=== PATIENT | female | born 1945 | race Caucasian/White ===

== ENCOUNTER 2019-03-09 13:42 | Outpatient (CLI) | payer MEDICARE ==
[2019-03-09 14:21] LABS: Anion Gap 12 mmol/L (10-20); BUN (Urea Nitrogen) 16 mg/dL (9.8-20.1); Calc. Creatinine Clearance 0 mL/min (70-130); Calcium 8.3 mg/dL (7.8-10.44); Carbon Dioxide 25 mmol/L (23-31); Chloride 109 mmol/L (98-107); Estimated GFR-MDRD 88; Glucose 104 mg/dL (83-110); Potassium 4.2 mmol/L (3.5-5.1); Sodium 142 mmol/L (136-145)
== END 2019-03-09 13:43 | disposition home or self-care (01) ==
LOC: MADLAB 13:42
PROVIDERS: ATTEND Internal Medicine Cardiovascular Disease
DX: I51.89 Other ill-defined heart diseases (principal)
CPT/HCPCS: 36415; 80048

== ENCOUNTER 2019-10-17 14:07 | Emergency (ER) | payer MEDICARE ==
--- NOTE | 2019-10-17 14:48 | CT ---
CT BRAIN WITHOUT CONTRAST: HISTORY: Injury, headache FINDINGS: No evidence of acute infarct, hemorrhage, midline shift or abnormal extra-axial fluid collections is seen. The ventricular size is appropriate and the basilar cisterns are patent. The bony calvarium is intact. There is mucosal disease in the paranasal sinuses. IMPRESSION: No CT evidence of acute intracranial process.
--- NOTE | 2019-10-17 14:55 | CT ---
CT FACIAL BONES WITH CORONAL AND SAGITTAL REFORMATIONS: 10/17/19 HISTORY: Injury. Facial pain. FINDINGS: There are bilateral nasal bone fractures. The remainder of the facial skeleton appears intact. No TMJ dislocation is seen. There is mucosal disease in the paranasal sinuses. IMPRESSION: Nasal bone fractures. POS: OFF
--- NOTE | 2019-10-17 15:22 | RAD ---
XR Knee Lt 4 View STANDARD HISTORY: Left knee pain FINDINGS: No fracture or dislocation is identified. Postop changes of total knee arthroplasty are seen in good position and alignment. No perihardware lucency is identified to suggest loosening.
== END 2019-10-17 15:46 | disposition home or self-care (01) ==
LOC: MADERS 14:07
DX: S02.2XXA Fracture of nasal bones, initial encounter for closed fracture (principal); S00.33XA Contusion of nose, initial encounter; E78.5 Hyperlipidemia, unspecified; E78.00 Pure hypercholesterolemia, unspecified; Z79.891 Long term (current) use of opiate analgesic; Z79.82 Long term (current) use of aspirin; Z79.899 Other long term (current) drug therapy; W18.30XA Fall on same level, unspecified, initial encounter
CPT/HCPCS: 70450; 70486

== ENCOUNTER 2021-08-25 19:40 | Emergency (ER) | payer MEDICARE ==
[~2021-08-25 19:40] MED LIST: Sodium Chloride 0.9% 1,000 ML BAG ONE; Sodium Chloride 0.9% 100 ML BAG ONE
[2021-08-25 20:19] LABS: #Basophils 0.1 thou/uL (0.0-0.2); #Lymphocytes 0.9 thou/uL (1.20-3.40); #Monocytes 0.8 thou/uL (0.11-0.59); #Neutrophils 12.1 thou/uL (1.40-6.50); %Basophils 0.8 % (0.0-1.0); %Eosinophils 0.2 % (0.0-10.0); %Lymphocytes 6.3 % (21.0-51.0); %Monocytes 5.4 % (0.0-10.0); %Neutrophils 87.4 % (42.0-75.0); Hemoglobin 13.9 g/dL (12.0-16.0); Mean Corpuscular HGB CONC 32.8 g/dL (32.0-36.0); Mean Corpuscular Hemoglobin 27.3 pg (27.0-31.0); Mean Corpuscular Volume 83.4 fL (78.0-98.0); Mean Platelet Volume 7.4 fL (7.4-10.4); Platelet Count 296 thou/uL (130-400); RBC Distribution Width 13.6 % (11.5-14.5); White Blood Cell (WBC) Count 13.9 thou/uL (4.8-10.8)
[2021-08-25 20:39] LABS: ALT (SGPT) 13 U/L (8-55); AST (SGOT) 16 U/L (5-34); Albumin 3.8 g/dL (3.4-4.8); Alkaline Phosphatase 105 U/L (40-110); Anion Gap 15 mmol/L (10-20); BUN (Urea Nitrogen) 13 mg/dL (9.8-20.1); Bilirubin, Total 1.1 mg/dL (0.2-1.2); CK (CPK) 42 U/L (29-168); Calc. Creatinine Clearance 0 mL/min (70-130); Calcium 8.9 mg/dL (7.8-10.44); Carbon Dioxide 23 mmol/L (23-31); Chloride 103 mmol/L (98-107); Estimated GFR 91; Globulin 3.2 g/dL (2.4-3.5); Glucose 118 mg/dL (83-110); Potassium 4.1 mmol/L (3.5-5.1); Sodium 137 mmol/L (136-145)
[2021-08-25 20:40] LABS: Acetaminophen Less than 10.0 mcg/mL (10.0-30.0); Alcohol Less than 10 mg/dL (Less than 10); Salicylate Less than 8.0 mg/dL (15.0-30.0)
[2021-08-25] MEDS ORDERED: Acetaminophen 325 MG TAB ONE (21:06)
[2021-08-25] MEDS ORDERED: Ibuprofen 800 MG TAB ONE (21:06)
[2021-08-25] MEDS ORDERED: Ondansetron PF 4 MG/2 ML Vial ONE (21:06)
[2021-08-25] MEDS ORDERED: Sodium Chloride 0.9% 1,000 ML ONE (21:06)
[2021-08-25] MEDS ORDERED: cefTRIAXone\\ROCEPHIN 2 GM VIAL ONE (21:06)
[2021-08-25 21:10] LABS: SARS-CoV-2 NAA Rapid Test Not Detected (NotDetected)
[2021-08-25 21:13] LABS: Bilirubin Negative (Negative); Blood, Urine Moderate (Negative); Clarity Clear (Clear); Glucose, Urine (Dipstick) Negative (Negative); Ketone, Urine > or equal to 80 mg/dL (Negative); Leukocyte Negative (Negative); Nitrite Negative (Negative); Protein, Urine (Dipstick) Negative (Neg-Trace); Specific Gravity, Urine 1.015 (1.005-1.030)
[2021-08-25 21:18] LABS: Squamous Epithelial 0-3 HPF (0-3); WBC/HPF 0-3 HPF (0-3)
[2021-08-25 21:23] LABS: Amphetamine Not Detected (NotDetected); Barbiturates Screen Not Detected (NotDetected); Benzodiazepine Screen Not Detected (NotDetected); Cocaine Metabolite Screen Not Detected (NotDetected); Medtox Control Line Valid? VALID (VALID); Methadone Not Detected (NotDetected); Methamphetamine Not Detected (NotDetected); Opiate Screen Not Detected (NotDetected); Oxycodone Screen Not Detected (NotDetected); Phencyclidine (PCP) Not Detected (NotDetected); THC/Cannabinoid Screen Not Detected (NotDetected); Tricyclic Screen Not Detected (NotDetected)
== END 2021-08-25 23:46 | disposition short-term general hospital (02) ==
LOC: MADERS 19:40
DX: N12 Tubulo-interstitial nephritis, not specified as acute or chronic (principal); R41.82 Altered mental status, unspecified; I49.1 Atrial premature depolarization; E78.5 Hyperlipidemia, unspecified; E78.00 Pure hypercholesterolemia, unspecified; Z20.822 Contact with and (suspected) exposure to COVID-19; Z79.899 Other long term (current) drug therapy
CPT/HCPCS: 51701; 70450; 71045; 80053; 80306; 80307; 81003; 81015; 82550; 83605; 84484; 85025; 86140; 87040; 87086; 93005; 94760; 96365; 96366; 96368; 96375; J0696; J2405; J3370; J3490; J7050

== ENCOUNTER 2021-09-30 11:26 | Emergency (ER) | payer MEDICARE ==
[2021-09-30] MEDS ORDERED: Boostrix 0.5 ML (Tdap) VIAL ONE (12:54)
== END 2021-09-30 12:59 | disposition home or self-care (01) ==
LOC: MADERS 11:26
DX: S81.811A Laceration without foreign body, right lower leg, initial encounter (principal); E78.00 Pure hypercholesterolemia, unspecified; W26.8XXA Contact with other sharp object(s), not elsewhere classified, initial encounter; Z79.899 Other long term (current) drug therapy; Z23 Encounter for immunization
CPT/HCPCS: 90471; 90715; 99282

== ENCOUNTER 2022-03-13 15:40 | Inpatient (IN) | payer MEDICARE ==
[2022-03-13] MEDS ORDERED: Guaifenesin DM 100-10/5 ML UDCUP PO PRN (17:53)
[2022-03-13] MEDS ORDERED: traMADol HCl 50 MG TAB PO PRN (17:53)
[2022-03-13] MEDS ORDERED: tiZANidine HCl 4 MG TAB PO PRN (19:01)
[2022-03-13] MEDS ORDERED: Torsemide 20 MG TAB PO PRN (19:19)
[2022-03-13] MEDS ORDERED: Acetaminophen 650 MG Suppository PR PRN (19:22)
[2022-03-13] MEDS ORDERED: Mag-Al Plus 1200 MG/1200 MG/120 MG/30 ML UDCUP PO PRN (19:24)
[2022-03-13 19:34] VITALS: BMI 35.0
[2022-03-13] MEDS: Atorvastatin Calcium 10 MG TAB PO SCH (21:31)
[2022-03-13] MEDS: Pramipexole Di-HCl 1 MG TAB PO SCH (21:31)
[2022-03-13] MEDS: Cefdinir 300 MG CAP PO SCH (21:31)
[2022-03-13] MEDS: Pregabalin 50 MG CAP PO SCH (21:31)
[2022-03-14 08:06] LABS: #Lymphocytes 1.4 thou/uL (1.20-3.40); #Monocytes 0.6 thou/uL (0.11-0.59); #Neutrophils 2.9 thou/uL (1.40-6.50); %Basophils 0.5 % (0.0-1.0); %Eosinophils 0.2 % (0.0-10.0); %Monocytes 12.3 % (0.0-10.0); Mean Corpuscular HGB CONC 32.4 g/dL (32.0-36.0); Mean Corpuscular Hemoglobin 27.3 pg (27.0-31.0); Mean Corpuscular Volume 84.2 fl (78.0-98.0); Mean Platelet Volume 8.2 fL (7.4-10.4); Platelet Count 348 10x3/uL (130-400); RBC Distribution Width 13.8 % (11.5-14.5); Red Blood Cell (RBC) Count 4.77 mill/uL (4.20-5.40); White Blood Cell (WBC) Count 4.9 10x3/uL (4.8-10.8)
[2022-03-14 08:10] LABS: ALT (SGPT) 26 U/L (8-55); AST (SGOT) 14 U/L (5-34); Albumin 3.2 g/dL (3.4-4.8); Alkaline Phosphatase 69 U/L (40-110); Anion Gap 10 mmol/L (10-20); BUN (Urea Nitrogen) 19 mg/dL (9.8-20.1); Bilirubin, Total 0.7 mg/dL (0.2-1.2); Calc. Creatinine Clearance 98 mL/min (70-130); Calcium 8.8 mg/dL (7.8-10.44); Carbon Dioxide 25 mmol/L (23-31); Chloride 106 mmol/L (98-107); Estimated GFR 92; Globulin 2.6 g/dL (2.4-3.5); Glucose 80 mg/dL (83-110); Potassium 4.2 mmol/L (3.5-5.1); Protein, Total 5.8 g/dL (5.8-8.1); Sodium 137 mmol/L (136-145)
[2022-03-14] MEDS: Saccharomyces boulardii 250 MG CAP PO SCH (09:07)
[2022-03-14] MEDS: Pramipexole Di-HCl 1 MG TAB PO SCH ×3 (09:07→21:17)
[2022-03-14] MEDS: Cefdinir 300 MG CAP PO SCH ×2 (09:07→21:17)
[2022-03-14] MEDS: Dexamethasone 4 MG TAB PO SCH (09:08)
[2022-03-14] MEDS: Ferrous Sulfate 325 MG TAB PO SCH (09:08)
[2022-03-14] MEDS: DULoxetine 20 MG CAP PO SCH (09:08)
[2022-03-14] MEDS: Pregabalin 50 MG CAP PO SCH ×2 (09:08→21:17)
[2022-03-14] MEDS: Raloxifene 60 MG TAB PO SCH (12:03)
[2022-03-14] MEDS: Atorvastatin Calcium 10 MG TAB PO SCH (21:17)
[2022-03-15] MEDS: Pregabalin 50 MG CAP PO SCH ×2 (08:31→21:24)
[2022-03-15] MEDS: Saccharomyces boulardii 250 MG CAP PO SCH (08:31)
[2022-03-15] MEDS: Pramipexole Di-HCl 1 MG TAB PO SCH ×3 (08:31→21:23)
[2022-03-15] MEDS: Dexamethasone 4 MG TAB PO SCH (08:32)
[2022-03-15] MEDS: Ferrous Sulfate 325 MG TAB PO SCH (08:32)
[2022-03-15] MEDS: DULoxetine 20 MG CAP PO SCH (08:32)
[2022-03-15] MEDS: Cefdinir 300 MG CAP PO SCH ×2 (08:52→21:23)
[2022-03-15] MEDS: Raloxifene 60 MG TAB PO SCH (13:00)
[2022-03-15] MEDS ORDERED: Calcium Carbonate 500 MG ChewTAB PO PRN (14:16)
[2022-03-15] MEDS ORDERED: Torsemide 20 MG TAB PO SCH (16:15)
[2022-03-15] MEDS: Acetaminophen 500 MG TAB PO PRN (21:25)
[2022-03-15] MEDS: Atorvastatin Calcium 10 MG TAB PO SCH (21:25)
[2022-03-16] MEDS: Torsemide 20 MG TAB PO SCH (06:02)
[2022-03-16] MEDS: Cefdinir 300 MG CAP PO SCH (07:53)
[2022-03-16] MEDS: Ferrous Sulfate 325 MG TAB PO SCH (07:53)
[2022-03-16] MEDS: DULoxetine 20 MG CAP PO SCH (07:53)
[2022-03-16] MEDS: Dexamethasone 4 MG TAB PO SCH (07:57)
[2022-03-16] MEDS: Pregabalin 50 MG CAP PO SCH ×2 (07:57→21:00)
[2022-03-16] MEDS: Pramipexole Di-HCl 1 MG TAB PO SCH ×3 (07:57→20:59)
[2022-03-16] MEDS: ESOMEPRAZOLE 20 MG PO SCH (07:57)
[2022-03-16] MEDS: Saccharomyces boulardii 250 MG CAP PO SCH (07:57)
[2022-03-16] MEDS ORDERED: Torsemide 20 MG TAB PO SCH (09:00)
[2022-03-16] MEDS: Raloxifene 60 MG TAB PO SCH (12:41)
[2022-03-16] MEDS ORDERED: Senokot S 8.6-50 MG TAB PO PRN (17:58)
[2022-03-16] MEDS: Atorvastatin Calcium 10 MG TAB PO SCH (20:59)
[2022-03-17] MEDS: Torsemide 20 MG TAB PO SCH (06:29)
[2022-03-17] MEDS: Polyethylene Glycol 3350 17 GM Packet PO SCH (09:22)
[2022-03-17] MEDS: Pregabalin 50 MG CAP PO SCH ×2 (09:23→21:04)
[2022-03-17] MEDS: Dexamethasone 4 MG TAB PO SCH (09:26)
[2022-03-17] MEDS: Pramipexole Di-HCl 1 MG TAB PO SCH ×3 (09:26→21:03)
[2022-03-17] MEDS: Saccharomyces boulardii 250 MG CAP PO SCH (09:26)
[2022-03-17] MEDS: Ferrous Sulfate 325 MG TAB PO SCH (09:26)
[2022-03-17] MEDS: DULoxetine 20 MG CAP PO SCH (09:27)
[2022-03-17] MEDS: ESOMEPRAZOLE 20 MG PO SCH (09:28)
[2022-03-17] MEDS: Raloxifene 60 MG TAB PO SCH (12:34)
[2022-03-17] MEDS: Atorvastatin Calcium 10 MG TAB PO SCH (21:03)
[2022-03-18] MEDS: Torsemide 20 MG TAB PO SCH (06:12)
[2022-03-18] MEDS: Dexamethasone 4 MG TAB PO SCH (08:42)
[2022-03-18] MEDS: Polyethylene Glycol 3350 17 GM Packet PO SCH (08:42)
[2022-03-18] MEDS: DULoxetine 20 MG CAP PO SCH (08:42)
[2022-03-18] MEDS: Pramipexole Di-HCl 1 MG TAB PO SCH ×3 (08:42→21:06)
[2022-03-18] MEDS: Saccharomyces boulardii 250 MG CAP PO SCH (08:42)
[2022-03-18] MEDS: Pregabalin 50 MG CAP PO SCH ×2 (08:42→21:06)
[2022-03-18] MEDS: Ferrous Sulfate 325 MG TAB PO SCH (08:42)
[2022-03-18] MEDS: ESOMEPRAZOLE 20 MG PO SCH (08:44)
[2022-03-18] MEDS: Raloxifene 60 MG TAB PO SCH (12:32)
[2022-03-18] MEDS: Atorvastatin Calcium 10 MG TAB PO SCH (21:06)
[2022-03-19] MEDS: ESOMEPRAZOLE 20 MG PO SCH (05:19)
[2022-03-19] MEDS: Torsemide 20 MG TAB PO SCH (05:20)
[2022-03-19] MEDS: Ferrous Sulfate 325 MG TAB PO SCH (08:33)
[2022-03-19] MEDS: Saccharomyces boulardii 250 MG CAP PO SCH (08:33)
[2022-03-19] MEDS: Pramipexole Di-HCl 1 MG TAB PO SCH ×3 (08:33→21:24)
[2022-03-19] MEDS: DULoxetine 20 MG CAP PO SCH (08:33)
[2022-03-19] MEDS: Dexamethasone 4 MG TAB PO SCH (08:33)
[2022-03-19] MEDS: Pregabalin 50 MG CAP PO SCH ×2 (08:33→21:24)
[2022-03-19] MEDS: Polyethylene Glycol 3350 17 GM Packet PO SCH (08:34)
[2022-03-19] MEDS: Raloxifene 60 MG TAB PO SCH (11:30)
[2022-03-19] MEDS: Atorvastatin Calcium 10 MG TAB PO SCH (21:24)
[2022-03-20] MEDS: Acetaminophen 500 MG TAB PO PRN (01:08)
[2022-03-20] MEDS: ESOMEPRAZOLE 20 MG PO SCH (05:50)
[2022-03-20] MEDS: Torsemide 20 MG TAB PO SCH (05:53)
[2022-03-20] MEDS: Pramipexole Di-HCl 1 MG TAB PO SCH ×3 (08:14→21:11)
[2022-03-20] MEDS: Ferrous Sulfate 325 MG TAB PO SCH (08:14)
[2022-03-20] MEDS: Saccharomyces boulardii 250 MG CAP PO SCH (08:15)
[2022-03-20] MEDS: Polyethylene Glycol 3350 17 GM Packet PO SCH (08:15)
[2022-03-20] MEDS: Pregabalin 50 MG CAP PO SCH ×2 (08:15→21:11)
[2022-03-20] MEDS: DULoxetine 20 MG CAP PO SCH (08:18)
[2022-03-20] MEDS: Raloxifene 60 MG TAB PO SCH (13:48)
[2022-03-20] MEDS: Atorvastatin Calcium 10 MG TAB PO SCH (21:11)
[2022-03-21] MEDS: Torsemide 20 MG TAB PO SCH (05:46)
[2022-03-21] MEDS: ESOMEPRAZOLE 20 MG PO SCH (05:46)
[2022-03-21] MEDS: Pramipexole Di-HCl 1 MG TAB PO SCH ×3 (08:18→20:48)
[2022-03-21] MEDS: Saccharomyces boulardii 250 MG CAP PO SCH (08:18)
[2022-03-21] MEDS: Polyethylene Glycol 3350 17 GM Packet PO SCH (08:18)
[2022-03-21] MEDS: Ferrous Sulfate 325 MG TAB PO SCH (08:18)
[2022-03-21] MEDS: Pregabalin 50 MG CAP PO SCH ×2 (08:18→20:48)
[2022-03-21] MEDS: DULoxetine 20 MG CAP PO SCH (08:18)
[2022-03-21] MEDS: Acetaminophen 500 MG TAB PO PRN (11:41)
[2022-03-21] MEDS: Raloxifene 60 MG TAB PO SCH (11:41)
[2022-03-21] MEDS: Atorvastatin Calcium 10 MG TAB PO SCH (20:48)
[2022-03-22 05:16] LABS: Hemoglobin 13.6 g/dL (12.0-16.0); Platelet Count 294 10x3/uL (130-400)
[2022-03-22] MEDS: Torsemide 20 MG TAB PO SCH (05:35)
[2022-03-22] MEDS: ESOMEPRAZOLE 20 MG PO SCH (05:35)
[2022-03-22] MEDS: Polyethylene Glycol 3350 17 GM Packet PO SCH (09:56)
[2022-03-22] MEDS: Pregabalin 50 MG CAP PO SCH ×2 (09:56→20:45)
[2022-03-22] MEDS: DULoxetine 20 MG CAP PO SCH (09:57)
[2022-03-22] MEDS: Saccharomyces boulardii 250 MG CAP PO SCH (09:57)
[2022-03-22] MEDS: Pramipexole Di-HCl 1 MG TAB PO SCH ×3 (09:57→20:45)
[2022-03-22] MEDS: Ferrous Sulfate 325 MG TAB PO SCH (09:57)
[2022-03-22] MEDS: Raloxifene 60 MG TAB PO SCH (12:31)
[2022-03-22] MEDS: Atorvastatin Calcium 10 MG TAB PO SCH (20:45)
[2022-03-22] MEDS: Acetaminophen 500 MG TAB PO PRN (20:48)
[2022-03-23] MEDS: ESOMEPRAZOLE 20 MG PO SCH (05:19)
[2022-03-23] MEDS: Torsemide 20 MG TAB PO SCH (05:19)
[2022-03-23] MEDS: Ferrous Sulfate 325 MG TAB PO SCH (07:47)
[2022-03-23] MEDS: DULoxetine 20 MG CAP PO SCH (07:47)
[2022-03-23] MEDS: Pregabalin 50 MG CAP PO SCH ×2 (07:48→20:58)
[2022-03-23] MEDS: Pramipexole Di-HCl 1 MG TAB PO SCH ×3 (07:48→20:58)
[2022-03-23] MEDS: Polyethylene Glycol 3350 17 GM Packet PO SCH (07:48)
[2022-03-23] MEDS: Lidocaine 5% Patch TD SCH (07:48)
[2022-03-23] MEDS: Saccharomyces boulardii 250 MG CAP PO SCH (07:49)
[2022-03-23] MEDS: Raloxifene 60 MG TAB PO SCH (14:19)
[2022-03-23] MEDS: Atorvastatin Calcium 10 MG TAB PO SCH (20:59)
[2022-03-23] MEDS ORDERED: Transdermal Patch Removal TOP SCH (21:00)
[2022-03-24] MEDS: ESOMEPRAZOLE 20 MG PO SCH (05:19)
[2022-03-24] MEDS: Torsemide 20 MG TAB PO SCH (05:19)
[2022-03-24] MEDS: Polyethylene Glycol 3350 17 GM Packet PO SCH (08:13)
[2022-03-24] MEDS: Lidocaine 5% Patch TD SCH (08:13)
[2022-03-24] MEDS: Pramipexole Di-HCl 1 MG TAB PO SCH (08:13)
[2022-03-24] MEDS: Pregabalin 50 MG CAP PO SCH (08:14)
[2022-03-24] MEDS: Ferrous Sulfate 325 MG TAB PO SCH (08:14)
[2022-03-24] MEDS: Saccharomyces boulardii 250 MG CAP PO SCH (08:14)
[2022-03-24] MEDS: DULoxetine 20 MG CAP PO SCH (08:14)
[2022-03-24 08:49] VITALS: BP 105/68; TEMP 97.8
[2022-03-24] MEDS: Raloxifene 60 MG TAB PO SCH (13:34)
== END 2022-03-24 15:15 | disposition home health service (06) | DRG 948 ==
LOC: MADMS 18:20
PROVIDERS: ADMIT Family Medicine; ATTEND Family Medicine
DX: R53.1 Weakness (principal); I50.32 Chronic diastolic (congestive) heart failure; J96.11 Chronic respiratory failure with hypoxia; L97.919 Non-pressure chronic ulcer of unspecified part of right lower leg with unspecified severity; R53.81 Other malaise; E66.9 Obesity, unspecified; G89.29 Other chronic pain; K21.9 Gastro-esophageal reflux disease without esophagitis; E78.5 Hyperlipidemia, unspecified; I73.9 Peripheral vascular disease, unspecified; I83.009 Varicose veins of unspecified lower extremity with ulcer of unspecified site; M54.50 Low back pain, unspecified; M16.12 Unilateral primary osteoarthritis, left hip; M19.90 Unspecified osteoarthritis, unspecified site; I87.8 Other specified disorders of veins; G25.81 Restless legs syndrome; Z91.041 Radiographic dye allergy status; Z91.048 Other nonmedicinal substance allergy status; Z79.899 Other long term (current) drug therapy; Z86.16 Personal history of COVID-19; Z87.01 Personal history of pneumonia (recurrent); Z90.49 Acquired absence of other specified parts of digestive tract; Z90.710 Acquired absence of both cervix and uterus; Z99.81 Dependence on supplemental oxygen; Z91.81 History of falling; Z68.35 Body mass index [BMI] 35.0-35.9, adult
CPT/HCPCS: 36415; 71046; 80053; 85014; 85018; 85025; 85049; J1650; J8540

== ENCOUNTER 2022-04-30 14:10 | Emergency (ER) | payer MEDICARE ==
[2022-04-30] MEDS ORDERED: Diphenoxylate HCl/Atropine Tablet ONE (14:53)
[2022-04-30] MEDS ORDERED: Ondansetron PF 4 MG/2 ML Vial ONE (14:53)
[2022-04-30] MEDS ORDERED: Lactated Ringer's 1,000 ML ONE (14:53)
[2022-04-30 15:40] LABS: #Lymphocytes 0.5 thou/uL (1.20-3.40); #Monocytes 0.3 thou/uL (0.11-0.59); #Neutrophils 6.5 thou/uL (1.40-6.50); %Basophils 0.2 % (0.0-1.0); %Eosinophils 0.6 % (0.0-10.0); %Lymphocytes 7.2 % (21.0-51.0); %Monocytes 3.8 % (0.0-10.0); %Neutrophils 88.2 % (42.0-75.0); Hemoglobin 13.1 g/dL (12.0-16.0); Mean Corpuscular Hemoglobin 27.6 pg (27.0-31.0); Mean Corpuscular Volume 83.6 fl (78.0-98.0); Mean Platelet Volume 7.3 fL (7.4-10.4); Platelet Count 256 10x3/uL (130-400); RBC Distribution Width 14.1 % (11.5-14.5); Red Blood Cell (RBC) Count 4.75 mill/uL (4.20-5.40); White Blood Cell (WBC) Count 7.3 10x3/uL (4.8-10.8)
[2022-04-30 15:56] LABS: ALT (SGPT) 15 U/L (8-55); AST (SGOT) 11 U/L (5-34); Albumin 3.3 g/dL (3.4-4.8); Alkaline Phosphatase 66 U/L (40-110); Anion Gap 11 mmol/L (10-20); BUN (Urea Nitrogen) 15 mg/dL (9.8-20.1); CK (CPK) 20 U/L (29-168); Calc. Creatinine Clearance 0 mL/min (70-130); Calcium 8.4 mg/dL (7.8-10.44); Carbon Dioxide 24 mmol/L (23-31); Chloride 110 mmol/L (98-107); Estimated GFR 93; Globulin 2.4 g/dL (2.4-3.5); Glucose 100 mg/dL (83-110); Magnesium 1.8 mg/dL (1.6-2.6); Potassium 3.6 mmol/L (3.5-5.1); Protein, Total 5.7 g/dL (5.8-8.1); Sodium 141 mmol/L (136-145)
[2022-04-30 16:07] LABS: Lipase Less than 4 U/L (8-78)
[2022-04-30] MEDS ORDERED: Acetaminophen 500 MG TAB ONE (16:33)
[2022-04-30 18:21] LABS: Blood, Urine Negative (Negative); Glucose, Urine (Dipstick) 100 mg/dL (Negative); Leukocyte Trace (Negative); Protein, Urine (Dipstick) Negative (Neg-Trace)
[2022-04-30 18:22] LABS: Bilirubin Unable to Interpret (Negative); Clarity Hazy (Clear); Ketone, Urine Unable to Interpret mg/dL (Negative); Nitrite Unable to Interpret (Negative); Urobilinogen UNABLE TO INTERPRET mg/dL (Less than 2)
[2022-04-30 18:24] LABS: Bacteria/HPF 2+ HPF (None Seen); RBC/HPF 0-3 HPF (0-3)
== END 2022-04-30 19:00 | disposition home or self-care (01) ==
LOC: MADERS 14:10
DX: R11.10 Vomiting, unspecified (principal); R19.7 Diarrhea, unspecified; M16.12 Unilateral primary osteoarthritis, left hip; E78.00 Pure hypercholesterolemia, unspecified; Z20.822 Contact with and (suspected) exposure to COVID-19; Z79.899 Other long term (current) drug therapy
CPT/HCPCS: 36415; 80053; 81003; 81015; 82550; 83605; 83690; 83735; 85025; 87086; 87186; 87804; 93005; 94760; 96361; 96374; J2405; J7120; U0003; U0005

== ENCOUNTER 2022-09-24 15:58 | Inpatient (IN) | payer MEDICARE ==
[2022-09-24] MEDS ORDERED: Acetaminophen 325 MG TAB PO PRN (19:34)
[2022-09-24] MEDS: tiZANidine HCl 4 MG TAB PO SCH (20:47)
[2022-09-24] MEDS: Pramipexole Di-HCl 1 MG TAB PO SCH (20:47)
[2022-09-24] MEDS: DULoxetine 20 MG CAP PO SCH (20:49)
[2022-09-24] MEDS: Cephalexin 250 MG CAP PO SCH (20:49)
[2022-09-24] MEDS: Potassium Chloride 10 MEQ TAB PO SCH (20:49)
[2022-09-24] MEDS: Simvastatin 20 MG TAB PO SCH (20:50)
[2022-09-24] MEDS: Gabapentin 300 MG CAP PO SCH (20:50)
[2022-09-24] MEDS: Apixaban 5 MG TAB PO SCH (20:52)
[2022-09-25] MEDS: HYDROcodone/Acetaminophen 10/325 mg Tablet PO PRN ×3 (04:42→20:15)
[2022-09-25] MEDS: Ferrous Sulfate 325 MG TAB PO SCH ×2 (08:30→17:15)
[2022-09-25] MEDS: Pramipexole Di-HCl 1 MG TAB PO SCH ×3 (08:30→20:11)
[2022-09-25 08:31] LABS: Hematocrit 36.5 % (36.0-47.0); Hemoglobin 11.9 g/dL (12.0-16.0); Mean Corpuscular HGB CONC 32.6 g/dL (32.0-36.0); Mean Corpuscular Volume 89.2 fl (78.0-98.0); Mean Platelet Volume 6.5 fL (7.4-10.4); Platelet Count 521 10x3/uL (130-400); RBC Distribution Width 14.4 % (11.5-14.5); Red Blood Cell (RBC) Count 4.09 mill/uL (4.20-5.40)
[2022-09-25] MEDS: Gabapentin 300 MG CAP PO SCH ×2 (08:31→20:11)
[2022-09-25] MEDS: Apixaban 5 MG TAB PO SCH ×2 (08:31→20:12)
[2022-09-25] MEDS: CO Q-10 CAPSULE 100 MG PO SCH (08:31)
[2022-09-25] MEDS: Potassium Chloride 10 MEQ TAB PO SCH ×2 (08:31→20:10)
[2022-09-25] MEDS: DULoxetine 20 MG CAP PO SCH ×2 (08:31→20:12)
[2022-09-25] MEDS: Cephalexin 250 MG CAP PO SCH ×2 (08:31→20:11)
[2022-09-25 08:43] LABS: Anion Gap 15 mmol/L (10-20); BUN (Urea Nitrogen) 15 mg/dL (9.8-20.1); Calc. Creatinine Clearance 84 mL/min (70-130); Calcium 9.6 mg/dL (7.8-10.44); Carbon Dioxide 24 mmol/L (23-31); Chloride 105 mmol/L (98-107); Estimated GFR 91; Glucose 99 mg/dL (83-110); Potassium 4.1 mmol/L (3.5-5.1); Sodium 140 mmol/L (136-145)
[2022-09-25] MEDS ORDERED: Torsemide 20 MG TAB PO SCH (09:00)
[2022-09-25] MEDS ORDERED: CO Q-10 CAPSULE 100 MG PO SCH (09:00)
[2022-09-25] MEDS: Raloxifene 60 MG TAB PO SCH (12:08)
[2022-09-25] MEDS: Simvastatin 20 MG TAB PO SCH (20:11)
[2022-09-25] MEDS: tiZANidine HCl 4 MG TAB PO SCH (20:12)
[2022-09-26] MEDS: HYDROcodone/Acetaminophen 10/325 mg Tablet PO PRN (05:22)
[2022-09-26] MEDS: Cephalexin 250 MG CAP PO SCH ×2 (08:01→20:06)
[2022-09-26] MEDS: Ferrous Sulfate 325 MG TAB PO SCH ×2 (08:01→17:01)
[2022-09-26] MEDS: Apixaban 5 MG TAB PO SCH ×2 (08:01→20:06)
[2022-09-26] MEDS: Potassium Chloride 10 MEQ TAB PO SCH ×2 (08:02→20:06)
[2022-09-26] MEDS: Pramipexole Di-HCl 1 MG TAB PO SCH ×3 (08:02→20:06)
[2022-09-26] MEDS: DULoxetine 20 MG CAP PO SCH ×2 (08:02→20:06)
[2022-09-26] MEDS: CO Q-10 CAPSULE 100 MG PO SCH (08:02)
[2022-09-26] MEDS: Gabapentin 300 MG CAP PO SCH ×2 (08:02→20:06)
[2022-09-26] MEDS: HYDROcodone/Acetaminophen 7.5/325 mg Tablet PO PRN ×2 (09:33→18:21)
[2022-09-26] MEDS: Raloxifene 60 MG TAB PO SCH (11:51)
[2022-09-26] MEDS: Simvastatin 20 MG TAB PO SCH (20:06)
[2022-09-26] MEDS: tiZANidine HCl 4 MG TAB PO SCH (20:07)
[2022-09-27] MEDS: HYDROcodone/Acetaminophen 7.5/325 mg Tablet PO PRN ×2 (05:39→22:27)
[2022-09-27] MEDS: Apixaban 5 MG TAB PO SCH ×2 (08:18→21:14)
[2022-09-27] MEDS: Potassium Chloride 10 MEQ TAB PO SCH ×2 (08:18→21:14)
[2022-09-27] MEDS: Cephalexin 250 MG CAP PO SCH (08:18)
[2022-09-27] MEDS: CO Q-10 CAPSULE 100 MG PO SCH (08:19)
[2022-09-27] MEDS: Ferrous Sulfate 325 MG TAB PO SCH ×2 (08:19→17:00)
[2022-09-27] MEDS: Pramipexole Di-HCl 1 MG TAB PO SCH ×3 (08:19→21:14)
[2022-09-27] MEDS: DULoxetine 20 MG CAP PO SCH ×2 (08:19→21:14)
[2022-09-27] MEDS: Gabapentin 300 MG CAP PO SCH ×2 (08:19→21:15)
[2022-09-27 08:43] LABS: Anion Gap 13 mmol/L (10-20); BUN (Urea Nitrogen) 10 mg/dL (9.8-20.1); Calc. Creatinine Clearance 91 mL/min (70-130); Calcium 9.6 mg/dL (7.8-10.44); Carbon Dioxide 22 mmol/L (23-31); Chloride 108 mmol/L (98-107); Estimated GFR 93; Glucose 92 mg/dL (83-110); Potassium 4.2 mmol/L (3.5-5.1); Sodium 139 mmol/L (136-145)
[2022-09-27] MEDS ORDERED: Meropenem 1 GM in Sodium Chloride 0.9% 100 ML IVPB SCH ×3 (10:00→22:00)
[2022-09-27] MEDS: Raloxifene 60 MG TAB PO SCH (13:13)
[2022-09-27] MEDS: tiZANidine HCl 4 MG TAB PO PRN (15:29)
[2022-09-27] MEDS: HYDROcodone/Acetaminophen 10/325 mg Tablet PO PRN (15:52)
[2022-09-27] MEDS: Meropenem 1 GM in Sodium Chloride 0.9% 100 ML IVPB SCH (21:12)
[2022-09-27] MEDS: Simvastatin 20 MG TAB PO SCH (21:14)
[2022-09-27] MEDS: tiZANidine HCl 4 MG TAB PO SCH (21:14)
[2022-09-28] MEDS: Meropenem 1 GM in Sodium Chloride 0.9% 100 ML IVPB SCH ×3 (05:15→19:57)
[2022-09-28] MEDS: HYDROcodone/Acetaminophen 7.5/325 mg Tablet PO PRN (05:16)
[2022-09-28] MEDS: Ferrous Sulfate 325 MG TAB PO SCH ×2 (08:10→16:54)
[2022-09-28] MEDS: Potassium Chloride 10 MEQ TAB PO SCH ×2 (08:10→20:24)
[2022-09-28] MEDS: Apixaban 5 MG TAB PO SCH ×2 (08:11→20:24)
[2022-09-28] MEDS: CO Q-10 CAPSULE 100 MG PO SCH (08:11)
[2022-09-28] MEDS: Pramipexole Di-HCl 1 MG TAB PO SCH ×3 (08:11→20:25)
[2022-09-28] MEDS: Gabapentin 300 MG CAP PO SCH ×2 (08:11→20:24)
[2022-09-28] MEDS: DULoxetine 20 MG CAP PO SCH ×2 (08:11→20:24)
[2022-09-28] MEDS: Raloxifene 60 MG TAB PO SCH (12:06)
[2022-09-28] MEDS: tiZANidine HCl 4 MG TAB PO PRN (15:29)
[2022-09-28] MEDS ORDERED: tiZANidine HCl 4 MG TAB PO PRN (20:00)
[2022-09-28] MEDS: Simvastatin 20 MG TAB PO SCH (20:24)
[2022-09-28] MEDS: tiZANidine HCl 4 MG TAB PO SCH (20:24)
[2022-09-29] MEDS: HYDROcodone/Acetaminophen 10/325 mg Tablet PO PRN (02:31)
[2022-09-29] MEDS: Meropenem 1 GM in Sodium Chloride 0.9% 100 ML IVPB SCH ×3 (02:59→19:32)
[2022-09-29] MEDS: Ferrous Sulfate 325 MG TAB PO SCH ×2 (08:45→16:56)
[2022-09-29] MEDS: Gabapentin 300 MG CAP PO SCH ×2 (08:45→20:01)
[2022-09-29] MEDS: Apixaban 5 MG TAB PO SCH ×2 (08:45→20:00)
[2022-09-29] MEDS: DULoxetine 20 MG CAP PO SCH ×2 (08:46→20:00)
[2022-09-29] MEDS: Pramipexole Di-HCl 1 MG TAB PO SCH ×3 (08:46→20:00)
[2022-09-29] MEDS: CO Q-10 CAPSULE 100 MG PO SCH (08:46)
[2022-09-29] MEDS: Potassium Chloride 10 MEQ TAB PO SCH ×2 (08:46→20:00)
[2022-09-29] MEDS: Raloxifene 60 MG TAB PO SCH (11:49)
[2022-09-29] MEDS: HYDROcodone/Acetaminophen 5/325 mg Tablet PO PRN (15:04)
[2022-09-29] MEDS: Simvastatin 20 MG TAB PO SCH (20:00)
[2022-09-29] MEDS: tiZANidine HCl 4 MG TAB PO SCH (20:00)
[2022-09-30] MEDS: Meropenem 1 GM in Sodium Chloride 0.9% 100 ML IVPB SCH ×3 (03:12→19:54)
[2022-09-30] MEDS: Apixaban 5 MG TAB PO SCH ×2 (09:16→20:03)
[2022-09-30] MEDS: Ferrous Sulfate 325 MG TAB PO SCH ×2 (09:16→17:18)
[2022-09-30] MEDS: Pramipexole Di-HCl 1 MG TAB PO SCH ×3 (09:16→20:03)
[2022-09-30] MEDS: Gabapentin 300 MG CAP PO SCH ×2 (09:16→20:03)
[2022-09-30] MEDS: CO Q-10 CAPSULE 100 MG PO SCH (09:16)
[2022-09-30] MEDS: DULoxetine 20 MG CAP PO SCH ×2 (09:16→20:02)
[2022-09-30] MEDS: Potassium Chloride 10 MEQ TAB PO SCH ×2 (09:16→20:03)
[2022-09-30] MEDS: Raloxifene 60 MG TAB PO SCH (12:00)
[2022-09-30] MEDS: HYDROcodone/Acetaminophen 10/325 mg Tablet PO PRN ×2 (12:07→20:02)
[2022-09-30] MEDS: Simvastatin 20 MG TAB PO SCH (20:03)
[2022-09-30] MEDS: tiZANidine HCl 4 MG TAB PO SCH (20:04)
[2022-10-01] MEDS: HYDROcodone/Acetaminophen 10/325 mg Tablet PO PRN (03:18)
[2022-10-01] MEDS: Meropenem 1 GM in Sodium Chloride 0.9% 100 ML IVPB SCH ×3 (04:51→20:11)
[2022-10-01] MEDS: Pramipexole Di-HCl 1 MG TAB PO SCH ×3 (09:02→20:11)
[2022-10-01] MEDS: Ferrous Sulfate 325 MG TAB PO SCH ×2 (09:02→17:07)
[2022-10-01] MEDS: Potassium Chloride 10 MEQ TAB PO SCH ×2 (09:02→20:12)
[2022-10-01] MEDS: Gabapentin 300 MG CAP PO SCH ×2 (09:02→20:12)
[2022-10-01] MEDS: DULoxetine 20 MG CAP PO SCH ×2 (09:02→20:11)
[2022-10-01] MEDS: CO Q-10 CAPSULE 100 MG PO SCH (09:02)
[2022-10-01] MEDS: Apixaban 5 MG TAB PO SCH ×2 (09:02→20:11)
[2022-10-01] MEDS: Raloxifene 60 MG TAB PO SCH (12:10)
[2022-10-01] MEDS: tiZANidine HCl 4 MG TAB PO SCH (20:11)
[2022-10-01] MEDS: Simvastatin 20 MG TAB PO SCH (20:11)
[2022-10-01] MEDS ORDERED: Mag-Al Plus 1200 MG/1200 MG/120 MG/30 ML UDCUP PO PRN (20:35)
[2022-10-02] MEDS: HYDROcodone/Acetaminophen 10/325 mg Tablet PO PRN ×2 (01:11→21:06)
[2022-10-02] MEDS: Meropenem 1 GM in Sodium Chloride 0.9% 100 ML IVPB SCH ×3 (02:59→20:36)
[2022-10-02 05:10] LABS: Hematocrit 31.8 % (36.0-47.0); Hemoglobin 10.6 g/dL (12.0-16.0); Platelet Count 409 10x3/uL (130-400)
[2022-10-02] MEDS: Pramipexole Di-HCl 1 MG TAB PO SCH ×3 (08:33→20:37)
[2022-10-02] MEDS: Ferrous Sulfate 325 MG TAB PO SCH ×2 (08:33→17:33)
[2022-10-02] MEDS: Apixaban 5 MG TAB PO SCH ×2 (08:33→20:37)
[2022-10-02] MEDS: DULoxetine 20 MG CAP PO SCH ×2 (08:33→20:36)
[2022-10-02] MEDS: CO Q-10 CAPSULE 100 MG PO SCH (08:33)
[2022-10-02] MEDS: Potassium Chloride 10 MEQ TAB PO SCH ×2 (08:33→20:37)
[2022-10-02] MEDS: Gabapentin 300 MG CAP PO SCH ×2 (08:33→20:37)
[2022-10-02] MEDS: Raloxifene 60 MG TAB PO SCH (12:12)
[2022-10-02] MEDS: Simvastatin 20 MG TAB PO SCH (20:36)
[2022-10-02] MEDS: tiZANidine HCl 4 MG TAB PO SCH (20:36)
[2022-10-03] MEDS: HYDROcodone/Acetaminophen 10/325 mg Tablet PO PRN (04:50)
[2022-10-03] MEDS: Meropenem 1 GM in Sodium Chloride 0.9% 100 ML IVPB SCH ×3 (04:50→20:22)
[2022-10-03] MEDS: Gabapentin 300 MG CAP PO SCH ×2 (08:16→20:23)
[2022-10-03] MEDS: Ferrous Sulfate 325 MG TAB PO SCH ×2 (08:17→16:41)
[2022-10-03] MEDS: DULoxetine 20 MG CAP PO SCH ×2 (08:18→20:23)
[2022-10-03] MEDS: Potassium Chloride 10 MEQ TAB PO SCH ×2 (08:18→20:23)
[2022-10-03] MEDS: Apixaban 5 MG TAB PO SCH ×2 (08:18→20:23)
[2022-10-03] MEDS: Pramipexole Di-HCl 1 MG TAB PO SCH ×3 (08:18→20:22)
[2022-10-03] MEDS: CO Q-10 CAPSULE 100 MG PO SCH (08:18)
[2022-10-03] MEDS ORDERED: ESOMEPRAZOLE 40 MG PO SCH (09:00)
[2022-10-03] MEDS: Raloxifene 60 MG TAB PO SCH (12:14)
[2022-10-03] MEDS: Simvastatin 20 MG TAB PO SCH (20:22)
[2022-10-03] MEDS: tiZANidine HCl 4 MG TAB PO SCH (20:23)
[2022-10-03] MEDS: ESOMEPRAZOLE 40 MG PO SCH ×2 (20:26→20:34)
[2022-10-04] MEDS: Meropenem 1 GM in Sodium Chloride 0.9% 100 ML IVPB SCH ×3 (04:08→20:03)
[2022-10-04 08:16] VITALS: BMI 33.1
[2022-10-04] MEDS: Pramipexole Di-HCl 1 MG TAB PO SCH ×3 (08:46→20:04)
[2022-10-04] MEDS: Gabapentin 300 MG CAP PO SCH ×2 (08:47→20:04)
[2022-10-04] MEDS: CO Q-10 CAPSULE 100 MG PO SCH (08:48)
[2022-10-04] MEDS: Apixaban 5 MG TAB PO SCH ×2 (08:48→20:04)
[2022-10-04] MEDS: Potassium Chloride 10 MEQ TAB PO SCH ×2 (08:48→20:03)
[2022-10-04] MEDS: Ferrous Sulfate 325 MG TAB PO SCH ×2 (08:48→16:36)
[2022-10-04] MEDS: DULoxetine 20 MG CAP PO SCH ×2 (08:48→20:04)
[2022-10-04] MEDS: Raloxifene 60 MG TAB PO SCH (11:44)
[2022-10-04] MEDS: Simvastatin 20 MG TAB PO SCH (20:04)
[2022-10-04] MEDS: tiZANidine HCl 4 MG TAB PO SCH (20:04)
[2022-10-04] MEDS: ESOMEPRAZOLE 40 MG PO SCH (20:05)
[2022-10-05] MEDS: HYDROcodone/Acetaminophen 5/325 mg Tablet PO PRN (01:17)
[2022-10-05 07:12] VITALS: BP 126/81; TEMP 98.1
[2022-10-05] MEDS: DULoxetine 20 MG CAP PO SCH (08:35)
[2022-10-05] MEDS: Pramipexole Di-HCl 1 MG TAB PO SCH (08:35)
[2022-10-05] MEDS: Apixaban 5 MG TAB PO SCH (08:35)
[2022-10-05] MEDS: Potassium Chloride 10 MEQ TAB PO SCH (08:35)
[2022-10-05] MEDS: CO Q-10 CAPSULE 100 MG PO SCH (08:35)
[2022-10-05] MEDS: Gabapentin 300 MG CAP PO SCH (08:36)
[2022-10-05] MEDS: Ferrous Sulfate 325 MG TAB PO SCH (08:36)
== END 2022-10-05 11:50 | disposition home health service (06) | DRG 560 ==
LOC: MADMS 17:18
PROVIDERS: ADMIT Family Medicine; ATTEND Family Medicine
DX: Z47.1 Aftercare following joint replacement surgery (principal); D62 Acute posthemorrhagic anemia; N30.00 Acute cystitis without hematuria; Z96.642 Presence of left artificial hip joint; I50.9 Heart failure, unspecified; E78.5 Hyperlipidemia, unspecified; K21.9 Gastro-esophageal reflux disease without esophagitis; G25.81 Restless legs syndrome; R53.81 Other malaise; I95.81 Postprocedural hypotension; Z90.710 Acquired absence of both cervix and uterus; Z90.49 Acquired absence of other specified parts of digestive tract; Z79.01 Long term (current) use of anticoagulants; Z98.890 Other specified postprocedural states; Z88.8 Allergy status to other drugs, medicaments and biological substances; Z86.718 Personal history of other venous thrombosis and embolism; Z91.041 Radiographic dye allergy status; Z98.51 Tubal ligation status
CPT/HCPCS: 36415; 80048; 85014; 85018; 85027; 85049; J2185; J3490

== ENCOUNTER 2022-12-20 14:06 | Emergency (ER) | payer MEDICARE ==
[2022-12-20 16:22] LABS: Band 3 % (5-11); Eosinophils 3 % (0-10); Hematocrit 39.9 % (36.0-47.0); Hemoglobin 12.4 g/dL (12.0-16.0); Hypochromia SLIGHT = 6-15 cells (100X) (0-5/hpf); Lymphocytes 40 % (21-51); MDiff Complete? YES; Mean Corpuscular HGB CONC 31.2 g/dL (32.0-36.0); Mean Corpuscular Hemoglobin 28.7 pg (27.0-31.0); Mean Corpuscular Volume 92.1 fl (78.0-98.0); Mean Platelet Volume 7.5 fL (7.4-10.4); Monocytes 7 % (0-10); Neutrophil 47 % (42-75); Platelet Adequacy Comment Appears Adequate; Platelet Count 313 10x3/uL (130-400); RBC Distribution Width 14.2 % (11.5-14.5); Red Blood Cell (RBC) Count 4.33 mill/uL (4.20-5.40)
[2022-12-20 16:26] LABS: ALT (SGPT) 11 U/L (8-55); AST (SGOT) 13 U/L (5-34); Albumin 3.7 g/dL (3.4-4.8); Alkaline Phosphatase 83 U/L (40-110); Anion Gap 14 mmol/L (10-20); BUN (Urea Nitrogen) 12 mg/dL (9.8-20.1); Bilirubin, Total 0.3 mg/dL (0.2-1.2); Calc. Creatinine Clearance 0 mL/min (70-130); Calcium 8.9 mg/dL (7.8-10.44); Carbon Dioxide 23 mmol/L (23-31); Chloride 107 mmol/L (98-107); Estimated GFR 93; Globulin 3.2 g/dL (2.4-3.5); Glucose 84 mg/dL (83-110); Lipase 10 U/L (8-78); Magnesium 2.2 mg/dL (1.6-2.6); Potassium 4.3 mmol/L (3.5-5.1); Protein, Total 6.9 g/dL (5.8-8.1); Sodium 140 mmol/L (136-145)
== END 2022-12-20 17:45 | disposition home or self-care (01) ==
LOC: MADERS 14:06
DX: S30.0XXA Contusion of lower back and pelvis, initial encounter (principal); J06.9 Acute upper respiratory infection, unspecified; I10 Essential (primary) hypertension; W01.190A Fall on same level from slipping, tripping and stumbling with subsequent striking against furniture, initial encounter
CPT/HCPCS: 71250; 74177; 80053; 83690; 83735; 85025

== ENCOUNTER 2023-04-30 19:46 | Emergency (ER) | payer MEDICARE | END 2023-04-30 20:25 | disposition home or self-care (01) | LOC: MADERS 19:46 | DX: S81.812A Laceration without foreign body, left lower leg, initial encounter (principal); I10 Essential (primary) hypertension; E78.00 Pure hypercholesterolemia, unspecified; W26.8XXA Contact with other sharp object(s), not elsewhere classified, initial encounter; Z79.899 Other long term (current) drug therapy | CPT/HCPCS: 12001; 99282 ==

== ENCOUNTER 2023-08-13 16:00 | Emergency (ER) | payer MEDICARE ==
[2023-08-13] MEDS ORDERED: cefTRIAXone (ROCEPHIN) 2 GM VIAL ONE (17:32)
[2023-08-13] MEDS ORDERED: Sodium Chloride 0.9% 100 ML ONE (17:33)
[2023-08-13] MEDS ORDERED: Sodium Chloride 0.9% 250 ML 250 ML ONE (17:33)
[2023-08-13] MEDS ORDERED: Vancomycin 1 GM VIAL ONE (17:33)
[2023-08-13 17:37] LABS: ALT (SGPT) 24 U/L (8-55); AST (SGOT) 25 U/L (5-34); Albumin 3.5 g/dL (3.4-4.8); Alkaline Phosphatase 69 U/L (40-110); Anion Gap 17 mmol/L (10-20); BUN (Urea Nitrogen) 12 mg/dL (9.8-20.1); Bilirubin, Total 0.6 mg/dL (0.2-1.2); Calc. Creatinine Clearance 0 mL/min (70-130); Calcium 8.4 mg/dL (7.8-10.44); Carbon Dioxide 24 mmol/L (23-31); Chloride 101 mmol/L (98-107); Estimated GFR 74; Globulin 2.2 g/dL (2.4-3.5); Glucose 112 mg/dL (83-110); Potassium 3.7 mmol/L (3.5-5.1); Protein, Total 5.7 g/dL (5.8-8.1); Sodium 138 mmol/L (136-145)
[2023-08-13 17:38] LABS: Band 1 % (5-11); Hematocrit 36.3 % (36.0-47.0); Hemoglobin 11.2 g/dL (12.0-16.0); Lymphocytes 12 % (21-51); MDiff Complete? YES; Mean Corpuscular HGB CONC 30.7 g/dL (32.0-36.0); Mean Corpuscular Hemoglobin 27.8 pg (27.0-31.0); Mean Corpuscular Volume 90.3 fl (78.0-98.0); Mean Platelet Volume 6.2 fL (7.4-10.4); Monocytes 6 % (0-10); Neutrophil 72 % (42-75); Platelet Count 226 10x3/uL (130-400); RBC Distribution Width 13.1 % (11.5-14.5); Red Blood Cell (RBC) Count 4.02 mill/uL (4.20-5.40); White Blood Cell (WBC) Count 5.3 10x3/uL (4.8-10.8)
[2023-08-13 17:39] LABS: Manual Diff?? YES; Platelet Adequacy Comment Appears Adequate; Reactive Lymphocytes 9 % (0-10)
== END 2023-08-13 19:35 | disposition home or self-care (01) ==
LOC: MADERS 16:00
DX: L03.115 Cellulitis of right lower limb (principal); I10 Essential (primary) hypertension; E78.00 Pure hypercholesterolemia, unspecified; Z79.899 Other long term (current) drug therapy
CPT/HCPCS: 36415; 80053; 83605; 83880; 85025; 96365; 96367; J0696; J3370; J3490; J7050

== ENCOUNTER 2024-03-19 16:40 | Inpatient (IN) | payer MEDICARE ==
[2024-03-19 23:27] VITALS: BMI 31.0
[2024-03-20] MEDS: Cefepime 2 GM in Sodium Chloride 0.9% 100 ML IVPB SCH (00:12)
[2024-03-20] MEDS: traMADol HCl 50 MG TAB PO PRN (00:13)
[2024-03-20] MEDS: Enoxaparin 40 MG (0.4 mL) SYRINGE SC SCH (08:35)
[2024-03-20] MEDS: Clobetasol 0.05% Cream 15 gm Tube TOP SCH (08:35)
[2024-03-20] MEDS: Pramipexole Di-HCl 1 MG TAB PO SCH (08:36)
[2024-03-20] MEDS: Potassium Chloride 10 MEQ TAB PO SCH (08:36)
[2024-03-20] MEDS: Calcium Carbonate 500 MG TAB PO SCH (08:36)
[2024-03-20] MEDS: Saccharomyces boulardii 250 MG CAP PO SCH (08:36)
[2024-03-20] MEDS: Gabapentin 100 MG CAP PO SCH (08:36)
[2024-03-20] MEDS: Pantoprazole 40 MG DR.TAB PO SCH (08:36)
[2024-03-20] MEDS: Raloxifene 60 MG TAB PO SCH (08:36)
[2024-03-20] MEDS: Cholecalciferol 1,000 UNITS (25 MCG) TAB PO SCH (08:36)
[2024-03-20] MEDS: Senokot S 8.6-50 MG TAB PO SCH (08:36)
[2024-03-20] MEDS: Torsemide 20 MG TAB PO SCH (08:37)
[2024-03-20] MEDS: DULoxetine 20 MG CAP PO SCH (08:37)
[2024-03-20] MEDS ORDERED: Carbidopa/Levodopa 10-100 mg Tablet PO SCH (09:00)
[2024-03-20] MEDS ORDERED: SODIUM CHLORIDE IM/IV SCH (09:00)
[2024-03-20] MEDS ORDERED: [UNRECOGNIZED DRUG - OTHER] IM/IV SCH (09:00)
[2024-03-20] MEDS ORDERED: [UNRECOGNIZED DRUG - OTHER] IVPB SCH (09:00)
[2024-03-20] MEDS ORDERED: Enoxaparin 40 MG (0.4 mL) SYRINGE SC SCH (09:00)
[2024-03-20] MEDS ORDERED: CEFEPIME IN ISO OSM DEXTROSE IVPB SCH (09:00)
[2024-03-20] MEDS: Ondansetron ODT 4 MG TAB PO PRN (11:57)
[2024-03-20] MEDS: Calcium Carbonate 500 MG ChewTAB PO PRN (19:23)
[2024-03-20] MEDS: Carbidopa/Levodopa 10-100 mg Tablet PO SCH (20:46)
[2024-03-20] MEDS: Gabapentin 300 MG CAP PO SCH (20:47)
[2024-03-20] MEDS: Atorvastatin Calcium 10 MG TAB PO SCH (20:48)
[2024-03-20] MEDS: NEXIUM 40 MG SCH (20:49)
[2024-03-20] MEDS: Acetaminophen 325 MG TAB PO SCH (20:49)
[2024-03-20] MEDS ORDERED: Gabapentin 300 MG CAP PO SCH (21:00)
[2024-03-21] MEDS ORDERED: HYDROcodone/Acetaminophen 5/325 mg Tablet PO PRN (09:04)
[2024-03-21] MEDS: Proctozone-HC 30 GM TUBE TOP PRN (10:01)
[2024-03-21] MEDS: Sodium Chloride 0.65% Nasal 44 ML BOT EA NARE PRN (11:43)
[2024-03-21] MEDS: Famotidine 20 MG TAB PO PRN (11:43)
[2024-03-21] MEDS: Acetaminophen 325 MG TAB PO PRN (11:57)
[2024-03-22] MEDS: HYDROcodone/Acetaminophen 5/325 mg Tablet PO PRN (04:02)
[2024-03-23] MEDS: HYDROcodone/Acetaminophen 5/325 mg Tablet PO SCH (18:05)
[2024-03-23] MEDS: tiZANidine HCl 4 MG TAB PO PRN (20:43)
[2024-03-23] MEDS: ESOMEPRAZOLE 20 MG PO SCH (23:46)
[2024-03-24] MEDS: ESOMEPRAZOLE 40 MG PO SCH (23:48)
[2024-03-25 06:45] VITALS: BMI 32.3
[2024-03-25] MEDS: Zolpidem Tartrate 5 MG TAB PO PRN (21:28)
[2024-03-27 15:05] VITALS: BP 132/86; TEMP 98.4
== END 2024-03-27 13:30 | disposition home health service (06) | DRG 945 ==
LOC: MADMS 21:44
PROVIDERS: ADMIT Family Medicine; ATTEND Family Medicine
PROC: F07Z9ZZ Gait Training/Functional Ambulation Treatment (ICD-10-PCS; principal; 2024-03-19)
DX: R53.81 Other malaise (principal); I50.32 Chronic diastolic (congestive) heart failure; L03.116 Cellulitis of left lower limb; E78.5 Hyperlipidemia, unspecified; M54.9 Dorsalgia, unspecified; G89.29 Other chronic pain; M19.90 Unspecified osteoarthritis, unspecified site; I73.9 Peripheral vascular disease, unspecified; G20.A1 Parkinson's disease without dyskinesia, without mention of fluctuations; K21.9 Gastro-esophageal reflux disease without esophagitis; S81.802A Unspecified open wound, left lower leg, initial encounter; G25.81 Restless legs syndrome; Z96.642 Presence of left artificial hip joint; Z96.652 Presence of left artificial knee joint; Z88.8 Allergy status to other drugs, medicaments and biological substances; Z98.51 Tubal ligation status; Z90.49 Acquired absence of other specified parts of digestive tract; Z90.89 Acquired absence of other organs; Z98.890 Other specified postprocedural states; Z91.81 History of falling; B96.5 Pseudomonas (aeruginosa) (mallei) (pseudomallei) as the cause of diseases classified elsewhere; B96.4 Proteus (mirabilis) (morganii) as the cause of diseases classified elsewhere
CPT/HCPCS: J0692; J1650; Q0162

== ENCOUNTER 2024-12-16 10:41 | Emergency (ER) | payer MEDICARE ==
[2024-12-16] MEDS ORDERED: Lidocaine 1% (PF) 30 ML VIAL ONE (10:50)
[2024-12-16 11:40] LABS: #Basophils 0.1 thou/uL (0.0-0.2); #Eosinophils 0.1 thou/uL (0.0-0.7); #Lymphocytes 1.5 thou/uL (1.20-3.40); #Monocytes 0.7 thou/uL (0.11-0.59); #Neutrophils 6.4 thou/uL (1.40-6.50); %Basophils 0.8 % (0.0-1.0); %Eosinophils 0.8 % (0.0-10.0); %Lymphocytes 17.4 % (21.0-51.0); %Monocytes 7.6 % (0.0-10.0); %Neutrophils 73.4 % (42.0-75.0); Hematocrit 44.2 % (36.0-47.0); Hemoglobin 13.2 g/dL (12.0-16.0); Mean Corpuscular Hemoglobin 24.6 pg (27.0-31.0); Mean Corpuscular Volume 82.5 fl (78.0-98.0); Platelet Count 370 10x3/uL (130-400); Red Blood Cell (RBC) Count 5.36 mill/uL (4.20-5.40); White Blood Cell (WBC) Count 8.7 10x3/uL (4.8-10.8)
[2024-12-16 11:41] LABS: MDiff Complete? YES
[2024-12-16 11:49] LABS: ALT (SGPT) 27 U/L (Less than 34); AST (SGOT) 25 U/L (11-34); Albumin 3.9 g/dL (3.1-4.5); Alkaline Phosphatase 79 U/L (40-110); Anion Gap 17 mmol/L (10-20); BUN (Urea Nitrogen) 22 mg/dL (9.8-20.1); Bilirubin, Total 0.6 mg/dL (0.3-1.2); Calc. Creatinine Clearance 0 mL/min (70-130); Calcium 8.7 mg/dL (7.8-10.44); Carbon Dioxide 24 mmol/L (23-31); Chloride 103 mmol/L (98-107); Globulin 3.1 g/dL (2.4-3.5); Glucose 109 mg/dL (83-110); Magnesium 2.1 mg/dL (1.6-2.6); Potassium 3.8 mmol/L (3.5-5.1); Sodium 140 mmol/L (136-145)
[2024-12-16 11:55] LABS: Troponin I Less than 0.010 ng/mL (< 0.028)
[2024-12-16] MEDS ORDERED: Bacitracin 1 PK ONE (12:35)
[2024-12-16] MEDS ORDERED: HYDROcodone/Acetaminophen 5/325 mg Tablet ONE (13:04)
== END 2024-12-16 13:37 | disposition home or self-care (01) ==
LOC: MADERS 10:41
DX: S51.012A Laceration without foreign body of left elbow, initial encounter (principal); S81.802A Unspecified open wound, left lower leg, initial encounter; S50.02XA Contusion of left elbow, initial encounter; S40.012A Contusion of left shoulder, initial encounter; S40.011A Contusion of right shoulder, initial encounter; S70.02XA Contusion of left hip, initial encounter; I10 Essential (primary) hypertension; E78.00 Pure hypercholesterolemia, unspecified; W19.XXXA Unspecified fall, initial encounter; Z79.899 Other long term (current) drug therapy
CPT/HCPCS: 70450; 72125; 72128; 72131; 73030 ×2; 73070; 73502; 80053; 83735; 84484; 85025; 93005; J0665; J2003; J3010; 12002; 96374

== ENCOUNTER 2024-12-23 12:05 | Outpatient (CLI) | payer MEDICARE ==
[2024-12-23 12:51] LABS: Glucose, Urine (Dipstick) 500 mg/dL (Negative); Leukocyte Negative (Negative); Protein, Urine (Dipstick) Negative (Neg-Trace); Specific Gravity, Urine 1.010 (1.005-1.030)
[2024-12-23 13:02] LABS: Bacteria/HPF Rare-Few HPF (None Seen); RBC/HPF 0-3 HPF (0-3); WBC/HPF None Seen HPF (0-3); Yeast-Budding Rare HPF (None Seen)
== END 2024-12-23 12:06 | disposition home or self-care (01) ==
LOC: MADLAB 12:05
PROVIDERS: ATTEND Family Medicine
DX: I87.332 Chronic venous hypertension (idiopathic) with ulcer and inflammation of left lower extremity (principal); L97.822 Non-pressure chronic ulcer of other part of left lower leg with fat layer exposed
CPT/HCPCS: 81001; 82043; 87077; 87086; 87186

== ENCOUNTER 2025-02-05 11:12 | Outpatient (CLI) | payer MEDICARE ==
[2025-02-05 12:58] LABS: ALT (SGPT) 17 U/L (Less than 34); AST (SGOT) 27 U/L (11-34); Albumin 3.6 g/dL (3.1-4.5); Alkaline Phosphatase 75 U/L (40-110); Anion Gap 16 mmol/L (10-20); BUN (Urea Nitrogen) 16 mg/dL (9.8-20.1); Bilirubin, Total 0.3 mg/dL (0.3-1.2); Calc. Creatinine Clearance 0 mL/min (70-130); Calcium 8.4 mg/dL (7.8-10.44); Carbon Dioxide 22 mmol/L (23-31); Chloride 104 mmol/L (98-107); Globulin 2.9 g/dL (2.4-3.5); Glucose 97 mg/dL (83-110); Potassium 4.6 mmol/L (3.5-5.1); Sodium 137 mmol/L (136-145)
== END 2025-02-05 11:13 | disposition home or self-care (01) ==
LOC: MADLAB 11:12
PROVIDERS: ATTEND Nurse Practitioner Family
DX: I87.332 Chronic venous hypertension (idiopathic) with ulcer and inflammation of left lower extremity (principal); L97.929 Non-pressure chronic ulcer of unspecified part of left lower leg with unspecified severity
CPT/HCPCS: 80053